=== PATIENT | male | born 1965 | race American Indian/Alaskan Native ===

== ENCOUNTER 2018-10-21 09:18 | Outpatient (CLI) | payer BC ==
[2018-10-21 09:57] LABS: #Basophils 0.1 thou/uL (0.0-0.2); #Eosinphils 0.2 thou/uL (0.0-0.7); #Lymphocytes 2.5 thou/uL (1.20-3.40); #Monocytes 0.5 thou/uL (0.11-0.59); #Neutrophils 3.2 thou/uL (1.40-6.50); %Basophils 1.2 % (0.0-1.0); %Eosinophils 2.4 % (0.0-10.0); %Lymphocytes 38.2 % (21.0-51.0); %Monocytes 8.3 % (0.0-10.0); %Neutrophils 49.9 % (42.0-75.0); Hemoglobin 15.5 g/dL (14.0-18.0); Mean Corpuscular Hemoglobin 28.6 pg (27.0-31.0); Mean Platelet Volume 9.6 fL (7.4-10.4); Platelet Count 227 thou/uL (130-400); RBC Distribution Width 12.7 % (11.5-14.5); Red Blood Cell (RBC) Count 5.42 mill/uL (4.70-6.10); White Blood Cell (WBC) Count 6.4 thou/uL (4.8-10.8)
[2018-10-21 10:01] LABS: ALT (SGPT) 39 U/L (8-55); AST (SGOT) 25 U/L (5-34); Albumin 4.5 g/dL (3.5-5.0); Alkaline Phosphatase 68 U/L (40-150); Anion Gap 12 mmol/L (10-20); BUN (Urea Nitrogen) 14 mg/dL (8.4-25.7); Bilirubin, Total 0.5 mg/dL (0.2-1.2); Calc. Creatinine Clearance 0 mL/min (70-130); Calcium 9.9 mg/dL (7.8-10.44); Carbon Dioxide 23 mmol/L (22-29); Cardiac Risk 3.9 (Less than 4.5); Chloride 109 mmol/L (98-107); Cholesterol 154 mg/dl (< 200 Desired); Estimated GFR-MDRD 82; Globulin 2.8 g/dL (2.4-3.5); Glucose 101 mg/dL (70-105); HDL Cholesterol 39 mg/dL (>60 Neg Risk); LDL Cholesterol, Calculated 84 mg/dL; Potassium 4.1 mmol/L (3.5-5.1); Protein, Total 7.3 g/dL (6.0-8.3); Sodium 140 mmol/L (136-145); Triglycerides 154 mg/dL (Less than 150)
--- NOTE | 2018-10-21 10:17 | RAD ---
THREE VIEWS LEFT HAND: Comparison: None. History: Left hand knot for the past three weeks. Palpable mass. FINDINGS: Three views of the left hand shows no evidence of acute fracture or dislocation. A marker is placed i n the area of palpable abnormality along the dorsal aspect of the ring finger metacarpal phalangeal j oint. No degenerative changes are seen. No radiopaque mass or foreign body is seen. IMPRESSION: Unremarkable exam. POS: C
[2018-10-21 10:33] LABS: Free T4 (Free Thyroxine) 0.85 ng/dL (0.70-1.48); Thyroid Stimulating Hormone 1.6991 uIU/mL (0.35-4.94)
== END 2018-10-21 09:19 | disposition home or self-care (01) ==
LOC: SCSRAD 09:18
PROVIDERS: ATTEND Family Medicine
DX: M79.642 Pain in left hand (principal); E78.5 Hyperlipidemia, unspecified; M10.9 Gout, unspecified
CPT/HCPCS: 36415; 80053; 80061; 84439; 84443; 84550; 85025

== ENCOUNTER 2018-11-02 14:02 | Outpatient (CLI) | payer BC ==
--- NOTE | 2018-11-02 15:51 | ULT ---
ULTRASOUND CAROTID DOPPLER STANDARD 11/02/18 HISTORY: Stenosis of right carotid. COMPARISON: MR angiogram of the neck from 2008. TECHNIQUE: Real time maya scale, color doppler and spectral analysis of the extracranial carotid and vertebral a rteries was performed. FINDINGS: There is antegrade flow of both vertebral arteries. No elevated peak systolic velocities within the i nternal carotid arteries. IMPRESSION: No hemodynamically significant stenosis. POS: [facility]
== END 2018-11-02 14:03 | disposition home or self-care (01) ==
LOC: BICULT 14:02
PROVIDERS: ATTEND Family Medicine
DX: I65.21 Occlusion and stenosis of right carotid artery (principal)
CPT/HCPCS: 93880

== ENCOUNTER 2021-09-27 09:42 | Outpatient (CLI) | payer BC | END 2021-09-27 09:43 | disposition home or self-care (01) | LOC: SCSRAD 09:42 | PROVIDERS: ATTEND Family Medicine | DX: R05.9 Cough, unspecified (principal) | CPT/HCPCS: 71046 ==